=== PATIENT | male | born 1995 | race African-American/Black ===

== ENCOUNTER 2021-09-28 08:46 | Emergency (ER) | payer MEDICAID ==
[~2021-09-28] VITALS: Ht 188 cm; Wt 80.0 kg
[~2021-09-28 08:46] MED LIST: HYDROCODONE; IBUPROFEN
[2021-09-28] MEDS ORDERED: ONDANSETRON HCL 4MG/2ML INJ IV STA ×2 (09:02→10:29)
[2021-09-28] MEDS ORDERED: MORPHINE SULFATE 4 MG/ML CPJ (NOT FOR IM USE) IV STA ×3 (09:02→10:29)
[2021-09-28] MEDS ORDERED: TERBUTALINE SULFATE 1MG/ML VIAL SUBCUT ONE (09:15)
[2021-09-28] MEDS ORDERED: LORAZEPAM 2MG/ML CPJ IV ONE (09:15)
[2021-09-28] MEDS ORDERED: SODIUM CHLORIDE 0.9% 1,000 ML IV ONE ×2 (09:15→09:30)
[2021-09-28] MEDS ORDERED: LIDOCAINE HCL 1% 20ML VIAL (Pyxis) INJ INFIL ONE (09:15)
[2021-09-28] MEDS ORDERED: TERBUTALINE SULFATE 1MG/ML VIAL SUBCUT NR ×2 (09:30→10:00)
[2021-09-28] MEDS ORDERED: DIPHENHYDRAMINE 50MG/ML VIAL IV ONE (09:30)
[2021-09-28 09:53] LABS: EOSINOPHILS % 10.1 % (0.0-5.0); HEMATOCRIT. 23.3 % (42.0-52.0); HEMOGLOBIN. 8.3 g/dL (14.0-18.0); LYMPHOCYTES % 19.1 % (20.0-50.0); MEAN CORPUSCULAR HEMOGLOBIN 32.1 pg (28.0-32.0); MEAN CORPUSCULAR VOLUME 89.8 fL (80.0-94.0); MEAN PLATELET VOLUME 7.5 fl (7.4-10.4); MONOCYTES % 10.5 % (2.0-8.0); NEUTROPHILS % 59.3 % (40.0-76.0); PLATELET 393 x1000/uL (130-400); RED CELL DISTRIBUTION WIDTH 20.9 % (11.6-14.6)
[2021-09-28 09:55] LABS: CHLORIDE 110 mEq/L (98-107)
[2021-09-28] MEDS ORDERED: PHENYLEPHRINE HCL 10 MG/ML 1ML (IV VIAL) IV NR ×2 (10:00→10:17)
[2021-09-28] MEDS ORDERED: PHENYLEPHRINE 50 MG in DEXT 5% WATER 245 ML IV PRN (10:00)
[2021-09-28] MEDS ORDERED: PHENYLEPHRINE 100MCG/ML 10ML VIAL (CATH LAB) IV NR (10:00)
[2021-09-28 12:44] VITALS: BP 126/81
== END 2021-09-28 14:04 | disposition home or self-care (01) ==
LOC: ER 08:46
DX: N48.30 Priapism, unspecified (principal); D57.1 Sickle-cell disease without crisis; Z91.048 Other nonmedicinal substance allergy status
CPT/HCPCS: 36415; 80053; 85025; 85044; 96361; 96372; 96374; 96375; 99284; A4217; J1200; J2060; J2270; J2370; J2405; J3105; J3490; J7030; Z7610

== ENCOUNTER 2022-02-06 21:18 | Emergency (ER) | payer MEDICAID ==
[~2022-02-06] VITALS: Ht 188 cm; Wt 84.0 kg
[2022-02-06] MEDS ORDERED: TERBUTALINE SULFATE 1MG/ML VIAL SUBCUT STA (22:56)
[2022-02-06] MEDS ORDERED: ONDANSETRON HCL 4MG/2ML INJ IV STA (22:56)
[2022-02-06] MEDS ORDERED: PHENYLEPHRINE 50 MG in DEXT 5% WATER 245 ML IV PRN (23:00)
[2022-02-06] MEDS ORDERED: LIDOCAINE HCL 1% 20ML VIAL (Pyxis) INJ INFIL ONE (23:00)
[2022-02-06] MEDS ORDERED: MORPHINE SULFATE 10 MG/ML CPJ IV ONE (23:00)
[2022-02-06] MEDS ORDERED: LIDOCAINE HCL/PF 1% 10 MG/ML 5ML VIAL INFIL ONE (23:00)
[2022-02-06] MEDS ORDERED: SODIUM CHLORIDE 0.9% 1,000 ML IV ONE (23:00)
[2022-02-06] MEDS ORDERED: MORPHINE SULFATE 10 MG/ML CPJ IM ONE (23:45)
[2022-02-07 00:06] VITALS: BP 120/80
[2022-02-07] MEDS ORDERED: SODIUM CHLORIDE 0.9% 1,000 ML IV ONE (00:30)
[2022-02-07] MEDS ORDERED: LIDOCAINE HCL 1% 20ML VIAL (Pyxis) INJ INFIL ONE (00:30)
[2022-02-07] MEDS ORDERED: PHENYLEPHRINE 50 MG in DEXT 5% WATER 245 ML IV PRN (01:30)
[2022-02-07] MEDS ORDERED: T3 PO (04:40)
[2022-02-07] MEDS ORDERED: IBUP-2029 MT (04:40)
== END 2022-02-07 05:57 | disposition home or self-care (01) ==
LOC: ER 21:18
DX: N48.30 Priapism, unspecified (principal)
CPT/HCPCS: 96372; 96374; 99291; J2270; J2370; J3105; J3490; J7030; J7060